=== PATIENT | male | born 1940 | race Two or more races ===

== ENCOUNTER 2025-06-25 16:22 | Emergency (ER) | payer OTHER, SELFPAY ==
[2025-06-25 17:37] VITALS: BP 192/70; PULSE 58; RESP 16; TEMP 36.9; O2SAT 100; BMI 20.8
--- NOTE | 2025-06-25 17:55 | PD.EDFALL ---
ED Fall Injury RME/HPI General Chief Complaint: Fall Stated Complaint: Fall, skin tear to left elbow Time Seen by Provider: 06/25/25 17:48 Arrival date/time: 06/25/25 16:22 Limitations: no limitations RME / HPI RME / HPI Narrative: 85-year-old male brought in by for slip and fall earlier today. States landed on his left shoulder but is not that tender as he would expect. But is requesting an x-ray. States he sustained a skin tear tried to pull down skin and patch it but wanted to make sure to bring him in. No loss of consciousness no other injuries reported other than left upper extremity. Patient is walking without assistance or device, tdap not uptodate Related Data Allergies Allergy/AdvReac Type Severity Reaction Status Date / Time No Known Drug Allergies Allergy Verified 06/25/25 16:27 Review of Systems Constitutional Constitutional: Denies fever(s) ENT Ears, Nose, Mouth, and Throat: Reports as per HPI Musculoskeletal Musculoskeletal: Reports as per HPI ED Exam General Limitations: Present no limitations General appearance: Present alert and in no apparent distress Head Head exam: Present atraumatic Eye Eye exam: Present normal appearance, PERRL and EOMI ENT ENT exam: Present normal exam, normal oropharynx and mucous membranes moist Neck Neck exam: Present normal inspection, full ROM and trachea midline Chest Chest inspection: Present normal inspection and symmetric chest wall rise Respiratory Respiratory exam: Present normal lung sounds bilaterally Cardiovascular Cardiovascular exam: Present regular rate, normal rhythm and normal heart sounds Extremities Exam Extremities exam: Present full ROM and tenderness (left shoulder ttp, left posterior forearm with skin avulsion approx 3cm flap ) Back Exam Back exam: Present normal inspection and full ROM Psychiatric Psychiatric exam: Present normal affect and normal mood Skin Skin exam: Present warm, dry, intact and normal color Course Quality Measures none Orders Category Date Time Status Wound Care NOW Care 06/25/25 17:55 Completed XR shoulder LT min 2V Stat Exams 06/25/25 18:28 Completed TET,DIP/PERT AC (Adult)-Tdap [Boostrix Adult (Tdap) Med 06/25/25 17:55 Discontinued Vacc] 0.5 ml IMI .ONCE ONE Vital Signs Vital signs: Vital Signs Temperature 98.4 F 06/25/25 17:37 Pulse Rate 58 L 06/25/25 17:37 Respiratory Rate 16 06/25/25 17:37 Blood Pressure 192/70 H 06/25/25 17:37 Pulse Oximetry (%) 100 06/25/25 17:37 Oxygen Delivery Method Room Air 06/25/25 17:37 Fall MDM Narrative MDM Narrative:: Wound care applied to skin avulsion, x-ray of shoulder normal no fractures; advised follow-up with PCP return to ER symptoms or Patient data External records reviewed:: [facility] previous records Clinical information provided by:: patient and family Social determinants that could affect healthcare access:: other (specify) (Elderly male accompanied by today cannot care for self) Patient has the following chronic illnesses:: Hypertension How is presenting disease/condition affected by chronic disease/condition?: uneffected by Evaluation data The following diagnostics were reviewed and interpreted by me:: radiology exam(s) Lab and/or radiology exams considered but not ordered:: CT of head was considered however unlikely to change course of treatment as patient did not strike his head Interpretation Summary: X-ray of left shoulder with no fracture no dislocation only osteoarthritis Medications / Prescriptions Medications or Prescriptions considered but not ordered:: No medications were given today Medication administrations:: Medication Administration History Discontinued Medications Diphtheria/Tetanus/Acell Pertussis (Diphth,Pertuss(Acell),Tet Vac 0.5 Ml Syr- Adult) 0.5 ml IMi .ONCE ONE Stop: 06/25/25 17:56 Last Admin: 06/25/25 18:14 Dose: 0.5 ml Documented By: ANGEL Did update his immunization Consultations Consultation(s) initiated? (list below): No Diagnosis Fall Differential Diagnosis: syncope, dislocation of shoulder region, fracture of wrist, compression fracture and concussion with loss of consciousness Most likely diagnosis given after review of the tests above:: 1.left forearm avulsion of skin 2. Left shoulder contusion Admission Indicated Admission indicated?: not indicated Admission Request Was there a request for admission?: No Disposition Plan Disposition Plan: Discharge Discharge Attestation Discharge Attestation: The patient and all family members were given an opportunity to ask questions and understood the discharge instructions. Discharge instructions specifically effects, indications for sooner follow up or return to the emergency department, and the expected course of current diagnosis. Patient condition: Stable Discharge Plan Plan Patient Disposition: HOME (Self Care) Discharge Disposition comment: f/u with pcp in 2-3days Problem List Clinical Impression: Avulsion of skin of forearm, Contusion of forearm, right Patient/Caregiver Discharge Instructions Education Materials: ED Contusion, Upper Extremity Print Language: Bol[place]ian Stand Alone Forms: [facility] Award Info., Patient Portal Info Letter PA/[employer] SUPERVISOR Supervising Physician PA/[employer] SUPERVISOR Supervising Physician: Dr. Kevin
[2025-06-25] MEDS: DIPHTH,PERTUSS(ACELL),TET VAC 0.5 ML SYR- ADULT IMi (18:14)
--- NOTE | 2025-06-25 18:28 | XR_ITS ---
Examination: Shoulder, left, 3 views Technique: Shoulder AP internal rotation, AP external rotation, Y view shoulder, 3 views Exam date and time : June 25, 2025, 1832 hours INDICATIONS: Injury of the shoulder today, shoulder pain. 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
== END 2025-06-25 19:03 | disposition home or self-care (01) ==
LOC: SERX 19:13
PROVIDERS: Emergency Provider Emergency Medicine; PCP Family Medicine
DX: S51.012A Laceration without foreign body of left elbow, initial encounter (principal); Y93.01 Activity, walking, marching and hiking
CPT/HCPCS: 73030; 90471; 90715; 99284